=== PATIENT | female | born 1990 | race Caucasian/White ===

== ENCOUNTER → 2017-07-16 16:25 | Outpatient (CLI) | payer OTHER, SELFPAY ==
[2017-07-20 11:59] LABS: HPV Reflexed? NOT INDICATED
== END ==
PROVIDERS: Visit Provider Obstetrics & Gynecology
DX: Z12.4 Encounter for screening for malignant neoplasm of cervix (principal)
CPT/HCPCS: 88175; G0145

== ENCOUNTER → 2018-07-12 16:19 | Outpatient (CLI) | payer OTHER, SELFPAY ==
[2018-06-17 15:47] VITALS: BMI 26.2
[2018-07-12 21:20] LABS: Chlamydia Trachomatis by PCR Negative (Negative); Neisserai gonorrhoeae by PCR Negative (Negative); Probe Check PASS; Sample Adequacy Control PASS; Specimen Processing Control PASS
[2018-07-17 12:57] LABS: HPV Reflexed? NOT INDICATED
== END ==
PROVIDERS: Visit Provider Obstetrics & Gynecology
DX: Z12.4 Encounter for screening for malignant neoplasm of cervix (principal); Z11.3 Encounter for screening for infections with a predominantly sexual mode of transmission
CPT/HCPCS: 87491; 87591; 88175; G0145

== ENCOUNTER 2018-07-29 09:35 | Day surgery (SDC) | payer OTHER, SELFPAY ==
[2018-06-17 15:47] VITALS: BMI 26.2
--- NOTE | 2018-07-29 09:36 | PCM.HP.STD ---
History of Present Illness Date of Admission: 07/29/18 07/29/2018 Name: BRITANY ALEMAN HISTORY OF PRESENT ILLNESS: On 07/29/2018, Britany Aleman, a 28 year old female 0 0 0 0 0, presented for: Presents today for repeat pelvic ultrasound She was in last week for NOB sono and at that time found to have a 6wk nonviable IUP with an irregular 11w1d gestational sac. No cardiac mothion noted. Sono today confirms the same findings. No interval growth noted. MISSED SAB. She has a suction D and C scheduled for today. Is NPO this morning for the planned surgery. Reviewed R,B,A and discussed anticipated preop, surgery and recovery. States she is not having any carmping or bleeding. EB ALLERGIES: NKDA MEDICATIONS HISTORY: None. REVIEW OF SYSTEMS: GENERAL - Denies fever, or chills SKIN - Denies skin changes EYES - Denies visual changes EARS - Denies difficulty hearing NOSE - Denies nasal congestion or bleeding MOUTH - Denies sore throat or difficulty swallowing NECK - Denies pain or swelling RESPIRATORY - Denies shortness of breath or wheezing CARDIOVASCULAR - Denies palpitations or chest pain GASTROINTESTINAL - Denies nausea, vomiting, diarrhea, constipation GENITOURINARY - no bleeding MUSCULOSKELETAL - Denies joint or muscle pain NEUROLOGICAL - Denies localized numbness or weakness PSYCHIATRIC - Denies depression or anxiety ENDOCRINE - Denies heat or cold intolerance, weight loss or gain HEMATO-IMMUNOLOGIC - Denies excesive bleeding with cuts MENSTRUAL HISTORY: LMP Known?- DefiniteAmount/Duration - 4 days, Regularity - Irregular, LMP - 02/08/19, Age Onset Menarche - 17 PHYSICAL EXAMINATION BP- 110/78 Weight- 163.00 lbs CONSTITUTIONAL - NAD, well nourished, and well developed HEENT - Normocephalic, PERRLA, EOMI NECK - no nuchal rigidity EXTREMITIES - No edema or calf tenderness NEUROLOGICAL - Cranial nerves II-XII grossly intact PSYCHIATRIC - A and O to time, place, person, mood and affect PELVIC - SONO: nonviable IUP at 6 wk EGA. Sac measuring 11 wk. ASSESSMENT: 1. Missed PLAN BY DIAGNOSIS: 1. Missed Reviewed sono findings. No change since last sono. Advised missed AB. Not having symptoms. No bleeding or spotting, cramping. Reviewed background SAB risk and discussed options for management. Reviewed all options at prior visit. She plans to proceed with suction D and C. This is scheduled for today. RTO in 2 wk for postop follow up appt. Advised may consider resumption of contraception or continue on PNV and resume intercourse when comfortable. All questions answered and consents signed and on chart. Past Medical History Medical History: Medical History (Last Updated 06/17/18 @ 15:48 by Nichelle Osorio) History of wisdom tooth extraction K08.409 Allergies No Known Allergies Allergy (Unverified 07/26/18 13:37) Home Medications: Ambulatory Orders Medication Instructions Recorded guaifenesin ER 1,200 mg tablet, 1,200 mg PO Q12H PRN 06/17/18 extended release 12 hr Acetaminophen/Codeine #3 1 tablet PO Q6H PRN PRN 1 Days #4 07/29/18 [Tylenol#3] tablet Smoking Status: Never smoker Tobacco Use: Non-smoker VTE Information - Inpt Only VTE Present on Admission: No VTE Mechan Device Prophylaxis: SCD's - Physical Exam Body Mass Index (BMI) 26.2 Assessment/Plan All Active Problems (Last Updated 06/17/18 @ 15:48 by Nichelle Osorio) Impacted cerumen, right ear (Acute)
[2018-07-29 10:04] VITALS: BP 115/79; PULSE 81; RESP 16; TEMP 36.9; O2SAT 100; BMI 26.3
--- NOTE | 2018-07-29 12:00 | POC_PTH ---
PATIENT: KARY JOINER LOC: [facility] [place][id number] AGE/SX: 28/F ROOM: RE07/29/[address]: Dr. Carla Marsh MD : [id number] BED: DIS: 07/29/2018 SPEC #: [id number] RECD: 07/29/18 13:46 STATUS: SHALONDA BRYANNA #: [id number] TOMY: 07/29/18 12:[address]: Carla Marsh DEPT: SURGICAL PATHOLOGY RECD BY: Nicol Medina ENTERED: 07/29/18 14:08 SP TYPE: PROD CONC OTHR DR: No Primary Care Phys Tissues: Product of conception, NOS Procedures: Surgery Specimen Level IV HEADER OPERATION: Dilation and curettage, suction PRE-OP DIAGNOSIS: Missed TISSUE SUBMITTED: Products of conception MICROSCOPIC DIAGNOSIS Endometrium, curettage: Chorionic villi, decidualized stroma and trophoblastic cells consistent with products of conception. AM:portia 07/30/18 MICROSCOPIC DESCRIPTION Slides are reviewed. GROSS DESCRIPTION Received in fixative is one container labeled with the patient's name and designated products of conception. The specimen consists of multiple irregular fragments of red-rachel soft tissue that in aggregate measure 8.5 x 8 x 1 cm. parts are not grossly recognized. Kier Hand portions are submitted in one cassette. / AM:portia 07/29/18 TC:5 CPT: 12236
--- NOTE | 2018-07-29 12:24 | PCM.DC.D&C ---
Discharge Diet: No Restrictions Discharge Activity: May not drive while taking narcotic pain medications., May Shower, May Take a Tub Bath Return to work on:: 07/30/18 May resume sexual activity in: 1 week Call your doctor if you observe: Fever of 101 or Higher, Inability to have a bowel movement, Using more than one pad per hour, Uncontrolled pain Allergies/Adverse Reactions: Allergies No Known Allergies Allergy (Unverified 07/29/18 10:02) Medications to take at Discharge guaifenesin ER 1,200 mg tablet, extended release 12 hr 1,200 mg PO Q12H PRN 06/17/18 Acetaminophen/Codeine #3 [Tylenol#3] 1 tablet PO Q6H PRN PRN 1 Days #4 tablet 07/29/18 The following prescriptions were given: Acetaminophen/Codeine #3 [Tylenol#3] 1 tablet PO Q6H PRN PRN 1 Days #4 tablet PRN Reason: Mod-Severe Pain (4-10/10) Primary Care Physician: Care Physician,No Primary [Primary Care Provider] - Test Results: Test results from this visit will be discussed in further detail at your follow-up appointment, if applicable. Please Follow Up With: Carla Marsh MD - [phone] When: 2 wks for postop appt Proposed Discharge Date: 07/29/18
--- NOTE | 2018-07-29 12:28 | DCINST_ITS ---
Discharge Diet: No Restrictions Discharge Activity: May not drive while taking narcotic pain medications., May Shower, May Take a Tub Bath Return to work on:: 07/30/18 May resume sexual activity in: 1 week Call your doctor if you observe: Fever of 101 or Higher, Inability to have a bowel movement, Using more than one pad per hour, Uncontrolled pain Allergies/Adverse Reactions: Allergies No Known Allergies Allergy (Unverified 07/29/18 10:02) Medications to take at Discharge guaifenesin ER 1,200 mg tablet, extended release 12 hr 1,200 mg PO Q12H PRN 06/17/18 Acetaminophen/Codeine #3 [Tylenol#3] 1 tablet PO Q6H PRN PRN 1 Days #4 tablet 07/29/18 The following prescriptions were given: Acetaminophen/Codeine #3 [Tylenol#3] 1 tablet PO Q6H PRN PRN 1 Days #4 tablet PRN Reason: Mod-Severe Pain (4-10/10) Primary Care Physician: Care Physician,No Primary [Primary Care Provider] - Test Results: Test results from this visit will be discussed in further detail at your follow- up appointment, if applicable. Please Follow Up With: Carla Marsh MD - [phone] When: 2 wks for postop appt Proposed Discharge Date: 07/29/18
[2018-07-29 12:54] VITALS: BP 108/64; BP 115/79; PULSE 81; RESP 18; TEMP 36.6; O2SAT 98
[2018-07-29 12:55] VITALS: BP 111/69; BP 115/79; PULSE 77; RESP 18; O2SAT 97
[2018-07-29 13:00] VITALS: BP 109/69; BP 115/79; PULSE 74; RESP 18; O2SAT 98
[2018-07-29 13:11] VITALS: BP 113/69; BP 115/79; PULSE 70; RESP 18; TEMP 36.8; O2SAT 100
--- NOTE | 2018-07-29 13:15 | PCM.OPRPT ---
Report of Operation Date of Procedure: 07/29/18 Pre-Operative Diagnosis: Missed , 6 wk EGA Post-Operative Diagnosis: Same Surgery/Procedure Performed:: Suction D and C Description of Surgical Findings:: Uterus sounds to 11.5 cm No cervical lesions noted. Products of conception consistent with products of conception noted and withdrawn. Type of Anesthesia:: IV Sedation, Local MAC Anesthesiologist: Yfn Sanderson Specimen's removed: uterine curettings, POC Drains: Kiko Villanueva Estimated Blood Loss (mL): 20 Fluids Replaced: LR Description of Procedure: Narrative Account: After the risks, benefits, alteratives of the procedure were reviewed with the patient informed consent was obtained. The patient was taken to the OR with IV running and placed in dorsal supine position on the operating table. She was given general anesthesia, per laryngeal airway, and then repositioned to the dorsal lithotomy position and was prepped and draped in the usual sterile fashion. The bladder was drained with a red rubber catheter. A Graves speculum was placed, the cervix identified and the anterior lip grasped with a single toothed tenaculum. The cervix was then easily dilated to allow admission of an 8 mm curved suction curette tip. The suction curette was then placed to the uterine fundus, suction applied, and POC were obtained. After most of the products of conception were removed a sharp curettage was performed and good Crei was noted in all quadrants of the uterus. One final pass was conducted with the suction curette and the remaining products of conception and uterine curettings were removed. A sponge stick was then used to remove any remaining tissue and blood from the upper vagina and cervix . All instruments were then removed from the vagina and cervix. Excellent hemostasis was noted. The patient was awakened from general anesthesia and then transferred to her recovery room bed in stable condition after tolerating the procedure well. Sponge , instrument, and needle counts were correct x two. Medications given intraoperatively included: Toradol 30 mg IV x one. For a complete listing of medications given intraoperatively, please see the anesthesia record. - Admit VTE Documentation VTE Present on Admission: No VTE Mechan Device Prophylaxis: SCD's
[2018-07-29 14:17] VITALS: BP 115/79
== END 2018-07-29 14:20 | disposition home or self-care (01) ==
LOC: SDC 09:36 → AC 09:38
PROVIDERS: Referring Provider Obstetrics & Gynecology; Visit Provider Obstetrics & Gynecology
PROC: (CPT 59812; principal; 2018-07-29 11:45)
DX: O03.4 Incomplete spontaneous abortion without complication (principal)
CPT/HCPCS: 59812; 36415; 86850; 86900; 88305; J7120

== ENCOUNTER → 2019-12-26 18:02 | Outpatient (CLI) | payer OTHER, SELFPAY | PROVIDERS: Referring Provider Obstetrics & Gynecology; Visit Provider Obstetrics & Gynecology | DX: Z20.828 Contact with and (suspected) exposure to other viral communicable diseases (principal) | CPT/HCPCS: 87635; 94799; U0003 ==

== ENCOUNTER 2019-12-27 19:51 | Inpatient (IN) | payer OTHER, SELFPAY ==
[2019-12-27] VITALS (26 sets, daily range): BP systolic 111–145; BP diastolic 53–98; PULSE 80–116; TEMP 35.6–36.6; O2SAT 93–100; BMI 35.4
--- NOTE | 2019-12-27 12:08 | OB.TRI.NOTE ---
History of Present Illness Was patient seen by the physician?: Yes Reason For Visit: R/O LABOR Date of Service: 12/27/19 Final EDITH: 12/26/19 Gestational age: 40 Weeks and 1 Days Allergies No Known Allergies Allergy (Unverified 07/29/18 10:02) - Pertinent Past Medical History Surgical History: Past Surgical History (Last Reviewed 06/17/18 @ 15:48 by Nichelle Osorio) History of wisdom tooth extraction Physical Exam Vitals: Vital Signs Temp Pulse BP Pulse Ox 97.9 F 99 114/66 98 12/27/19 09:50 12/27/19 10:09 12/27/19 10:09 12/27/19 09:41 NST - FHR Rate Baby A Baseline: 135 Variability:: Moderate Accelerations:: 15 x 15 Decelerations:: Variable - rare NST Reactive:: Yes Uterine Activity:: Irregular Impression/Plan NST for false labor
[2019-12-27] MEDS: Lactated Ringers 1,000 ML 50 ML IV (20:20)
[2019-12-27] MEDS: Lactated Ringers 500 ML 999 ML IV (20:22)
[2019-12-27] MEDS: Ondansetron 4 MG/2 ML Vial IV (20:33)
[2019-12-27 20:39] LABS: Absolute Lymphocyte Count 1.93 X10^3/uL (0.83-4.51); Absolute Neutrophil Count 17.3 X10^3/uL (2.0-7.7); Basophil# 0.03 X10^3/uL; Basophil% 0.1 % (0-1); Eosinophil# 0.04 X10^3/uL; Eosinophils% 0.2 % (0-5); Hematocrit 31.7 % (37-47); Hemoglobin 10.7 g/dL (12.0-15.0); Lymphocyte # 1.93 X10^3/ul (4.0); Lymphocyte % 9.5 % (19-41); Mean Corp Hgb Conc 33.8 g/dL (32-36); Mean Corpuscular Hgb 30.2 pg (27.0-32.0); Mean Corpuscular Volume 89.5 fL (81-99); Mean Platelet Vol. 11.3 fl (6.2-12.0); Monocyte% 4.4 % (0-10); NRBC Flagged by Analyzer 0 % (0-5); Neutrophil # 17.29 X10^3/uL (2.7-7.7); Platelet Count 180 K/mm3 (150-450); RBC Distribution Width CV 13.6 % (11.6-14.6); RBC Distribution Width SD 45.1 fl (35.1-43.9); Red Blood Count 3.54 M/mm3 (4.2-5.4); White Blood Count 20.4 K/mm3 (4.4-11.0)
[2019-12-27] MEDS: fentaNYL-bupivacaine (epidural) 100 ML BAG EPIDURAL (21:20)
--- NOTE | 2019-12-27 23:44 | HP.PCM_ITS ---
History Date of Admission: 12/27/19 Final EDITH: 12/26/19 Gestational age: 40 Weeks and 1 Days History of this : Patient presents with ctxs. Surgical History: Surgical History (Last Reviewed 06/17/18 @ 15:48 by Nichelle Osorio) History of wisdom tooth extraction K08.409 Allergies No Known Allergies Allergy (Unverified 07/29/18 10:02) Home Medications: Home Medications Ferrous Gluconate 324 mg PO DAILY 12/27/19 Pnv No.95/Ferrous Fum/Folic AC [ Formula] 1 ea PO DAILY 12/27/19 Smoking Status: Never smoker Alcohol: None Number of Fetus(es): 1 NST - FHR Rate Baby A Baseline: 130 Variability:: Moderate Accelerations:: 15 x 15 Uterine Activity:: not tracing well History Past Pregnancies: Past Pregnancies Delivery Date Name GA/ Weeks Outcome Route Wt Infant Sex Labor Length Anesthesia Delivery Location Provider FOB Labs: See [facility] H[facility]P Physical Exam Vitals: Vital Signs Temp Pulse BP Pulse Ox 97.8 F 80 111/53 L 100 12/27/19 23:41 12/27/19 23:37 12/27/19 23:37 12/27/19 23:37 General: Alert, Oriented x3 Abdomen: Soft, Non Tender, Non-Distended, Gravid GLASS CUT OFF SUPERVISOR: Normal external genitalia Estimated gestational size: Appropriate for gestational size Presentation: Cephalic Cervix Dilation (cm): 9 - AROM clear fluid Station: -2 Effacement (%): 80 Assessment/Plan All Active Problems (Last Updated 06/17/18 @ 15:48 by Nichelle Osorio) Impacted cerumen, right ear (Acute) This is a 29 year-old, G2, P0010, at 40&1 weeks gestational age. Admit to L&D Expectant management COVID test pending GBS positive - pcn per protocol Pain - epidural EFW - less than 4500g, patient with adequate pelvis Routine care
[2019-12-28] VITALS (30 sets, daily range): BP systolic 98–141; BP diastolic 44–77; PULSE 75–105; RESP 12–21; TEMP 35.4–37.2; O2SAT 97–100
[2019-12-28] MEDS: Oxytocin 30 units/NS 500 ml 30 UNITS/500 ML IV.SOLN IV (00:18)
[2019-12-28] MEDS: fentaNYL-bupivacaine (epidural) 100 ML BAG EPIDURAL (01:46)
[2019-12-28] MEDS: Lactated Ringers 1,000 ML 200 ML IV (01:47)
[2019-12-28] MEDS: Mag Hydrox/Al Hydrox/Simeth 30 ML UDC PO (04:29)
[2019-12-28] MEDS: Lactated Ringers 500 ML 999 ML IV (04:33)
[2019-12-28] MEDS: 0.9% Saline Lock 10 ML Syringe IV ×2 (04:57→17:49)
[2019-12-28] MEDS: Ondansetron 4 MG/2 ML Vial IV (04:57)
--- NOTE | 2019-12-28 05:15 | PCM.OPRPT ---
Report of Operation Date of Procedure: 12/28/19 Surgery/Procedure Performed:: Primary low transverse section Description of Surgical Findings:: Normal maternal uterus and adnexa diesel retrofit designer: Vani Mueller Delivery Classification: ABHINAV Final EDITH: 12/26/19 Gestational age: 40 Weeks and 2 Days Type of Anesthesia:: Epidural Pre-Operative Diagnosis: Failure to dilate Post-Operative Diagnosis: Failure to dilate Indications: Patient presented in labor at 8cm. She progressed to 9cm and AROM performed. Pitocin was started. 6 hours after AROM patient remained 9cm. Decision was made to proceed with primary cesearan section. Indications for : Sec. Arrest of Dilitation Description of Procedure: Patient taken to OR where spinal anesthesia was dosed. She was prepped and draped in the normal sterile fashion in a dorsal supine position with a leftward tilt. After ensuring adequacy of anesthesia the Pfannensteil skin incision was made and carried through to the underlying fascia with a scalpel. The fascia was incised in the midline and carried laterally with the Sandoval scissors. The rectus muscles were in the midline and the peritoneum was entered bluntly. The bladder flap was dissected down carefully with the Metzenbaum scissors and blunt dissection. The uterus was incised in a transverse fashion and then incision extended with cephalocaudad traction. The fetus was vertex and the head was elevated to the uterine incision. With fundal pressure the head delivered. head was gently guided to allow delivery of anterior and posterior shoulders. No excess traction placed on head. Body delivered and 3VC clamped & cut in delayed fashion. Then the was handed off to the waiting RN. The placenta was delivered with gentle traction and fundal massage and the uterus was exteriorized and cleared of all clots and debris. The uterine incision was closed with 1 vicryl suture in a running locked fashion. The bovie was used to further obtain further hemostasis of the uterine incision. A second imbricating layer of monocryl was placed. The uterus was returned to the peritoneal cavity. The pelvis was irrigated & then cleared of all clots and debris. The uterine incision was reexamined and found to be hemostatic. Some kimani was placed over the uterine incision due to the denuded areas. The fascia was closed with looped PDS suture in a running standard fashion. The subcutaneous tissue was examined & any bleeding bovie cauterized. The subcutaneous tissue was reapproximated with plain gut suture. The skin was closed in a subcuticular fashion by the MULTI PURPOSE MACHINE OPERATOR with me present in the labor and delivery suite. I performed the remainder of the procedure w/ assistance. Amniotic Membrane Rupture Type: Artificial Amniotic Fluid Description: Clear Placenta Disposition: [facility] Drain: Rodriguez to straight drain Fluids Replaced: 1500ml Cord Entanglement: None Cord Vessel Description: 3 Vessels Esitmated Blood Loss (ml): 900ml Infant Gender: Female - Brennen (1 minute): 9 (5 minute): 9 Delayed cord clamping: Yes Antibiotic Given: Ancef 2 grams IV x1, Zithromax 500 mg/5 mL X1 - Admit VTE Documentation VTE Present on Admission: No
[2019-12-28] MEDS: Sodium Citrate/Citric Acid 30 ML UDC PO (05:22)
[2019-12-28] MEDS: Cefazolin 2 GM in 0.9% Normal Saline 100 ML IV (05:25)
[2019-12-28] MEDS: Oxytocin 30 units/NS 500 ml 30 UNITS/500 ML IV.SOLN 167 UNITS IV (07:00)
--- NOTE | 2019-12-28 07:54 | NURSING ---
0511- dr hong on unit, do not give tylenol as per new ERA orders d/t pt being nauseous/emesis
[2019-12-28] MEDS: Lactated Ringers 1,000 ML 100 ML IV (10:00)
[2019-12-28] MEDS: Senna/Docusate Sodium 1 Tablet PO (12:08)
[2019-12-28] MEDS: Acetaminophen 500 MG Tablet 1000 MG PO ×2 (12:09→17:48)
[2019-12-28] MEDS: Ketorolac 30 MG/ML Syringe IV ×2 (12:09→17:48)
[2019-12-28] MEDS: Enoxaparin 40 MG/0.4 ML Syringe SC (18:40)
[2019-12-29] MEDS: Ketorolac 30 MG/ML Syringe IV ×2 (00:03→05:46)
[2019-12-29] MEDS: 0.9% Saline Lock 10 ML Syringe IV ×2 (00:03→05:46)
[2019-12-29] MEDS: Acetaminophen 500 MG Tablet 1000 MG PO ×4 (00:03→18:23)
[2019-12-29 00:13] VITALS: BP 116/65; PULSE 95; RESP 18; TEMP 36.2; O2SAT 99
[2019-12-29 03:15] VITALS: BP 113/53; PULSE 97; RESP 14; TEMP 36.3
[2019-12-29 06:22] LABS: Hematocrit 21.8 % (37-47); Hemoglobin 7.2 g/dL (12.0-15.0); Mean Corpuscular Hgb 30.3 pg (27.0-32.0); Mean Corpuscular Volume 91.6 fL (81-99); Mean Platelet Vol. 11.5 fl (6.2-12.0); Platelet Count 133 K/mm3 (150-450); Red Blood Count 2.38 M/mm3 (4.2-5.4); White Blood Count 13.6 K/mm3 (4.4-11.0)
--- NOTE | 2019-12-29 08:11 | PCM.PN.OB ---
Subjective: Pt doing well. No CP, SOB, lightheadedness, dizziness, leg pain. Ambulating and voiding without difficulty. Tolerating reg diet without N/V. without complaints. Lochia normal. - Physical Exam Vitals/I&O's: Vital Signs Temp Pulse Resp BP Pulse Ox 97.3 F L 97 14 113/53 L 99 12/29/19 03:15 12/29/19 03:15 12/29/19 03:15 12/29/19 03:15 12/29/19 00:13 Oxygen Delivery Method Room Air Weight: 219 lb 2.232 oz Body Mass Index (BMI) 35.4 Intake and Output for Last 24 Hours 12/27/19 12/28/19 12/29/19 23:59 23:59 23:59 Intake Total 606.67 / 606.67 6280.04 / 6280.04 Output Total 375 / 375 1960 / 1960 700 / 700 Balance 231.67 / 231.67 4320.04 / 4320.04 -700 / -700 General: Alert, No apparent distress HEENT: Atraumatic Abdomen: Soft, - - ATTP, +soft distension, no rebounding, no gaurding, no rigidity Extremities: No edema, No Calf Tenderness Skin: No rashes Neurological: Neuro grossly intact Psych/Mental Status: Normal Affect, Appropriate Laboratory Results 12/29/19 05:40: WBC 13.6 H, RBC 2.38 L, Hgb 7.2 L, Hct 21.8 L, MCV 91.6, MCH 30.3, MCHC 33.0, RDW Std Deviation 47.0 H, RDW Coeff of Iván 14.0, Plt Count 133 L, MPV 11.5 Current Medications Acetaminophen (Tylenol) 1,000 mg PO Q6 [facility] Last Admin: 12/29/19 05:46 Dose: 1,000 mg Documented by: Bisacodyl (Dulcolax) 10 mg RECTAL UD PRN PRN Reason: If no BM Enoxaparin Sodium (Lovenox) 40 mg SC DAILY@1900 [facility] Last Admin: 12/28/19 18:40 Dose: 40 mg Documented by: Hydrocortisone (Hytone) 1 applic TOPICAL TID PRN PRN; Protocol PRN Reason: Discomfort Naloxone HCl 4 mg/ Dextrose 504 mls @ 0 mls/hr IV .Q0M PRN; Protocol PRN Reason: Respiratory depression Naloxone HCl 4 mg/ Dextrose 504 mls @ 0 mls/hr IV .Q0M PRN; Protocol PRN Reason: To maintain Resp. rate >10 Ibuprofen (Motrin) 600 mg PO Q6 [facility] Methylergonovine Maleate (Methergine) 0.2 mg IM X1 PRN PRN Reason: Uterine Atony Naloxone HCl (Narcan) 0.02 mg IV Q1M PRN PRN Reason: RR <10 and pt unresponsive Ondansetron HCl (Zofran) 4 mg IV Q4H PRN PRN PRN Reason: Nausea Oxycodone HCl (Oxyir) 5 - 10 mg PO Q4H PRN PRN PRN Reason: Pain Score 4-10/10 Prochlorperazine Edisylate (Compazine Iv) 10 mg IV Q6H PRN PRN PRN Reason: NAUSEA Senna/Docusate Sodium (Senokot-S, Lisa-Colace) 0 tablet PO DAILY [facility] Last Admin: 12/28/19 12:08 Dose: 1 tablet Documented by: Simethicone (Mylicon) 80 mg PO PCHS PRN PRN Reason: Indigestion/stomach pain Sodium Chloride () 5 - 15 ml IV UD PRN PRN Reason: SALINE FLUSH Last Admin: 12/29/19 05:46 Dose: 10 ml Documented by: Medical Necessity - Tobacco Use Smoking Status: Never smoker Assessment/Plan All Active Problems (Last Updated 06/17/18 @ 15:48 by Nichelle Osorio) Impacted cerumen, right ear (Acute) POD#1 s/p C/S - Doing well - HDS and without symptoms of anemia. Hgb 7.2. Discussed likely need for blood transfusion and r/b/a to blood transfusion. Discussed to let us know if she has any symptoms of anemia today. Otherwise will check CBC in AM - - Routine post op care
[2019-12-29 09:00] VITALS: BP 106/44; PULSE 87; RESP 16; TEMP 36.4
[2019-12-29] MEDS: Senna/Docusate Sodium 1 Tablet PO (10:06)
[2019-12-29] MEDS: Ibuprofen 600 MG Tablet PO ×3 (12:21→17:52)
[2019-12-29 14:30] VITALS: BP 115/52; PULSE 91; RESP 16; TEMP 36.4
[2019-12-29] MEDS: Enoxaparin 40 MG/0.4 ML Syringe SC (17:53)
[2019-12-29 20:44] VITALS: BP 117/50; PULSE 93; RESP 14; TEMP 36.7; O2SAT 97
[2019-12-30] MEDS: Acetaminophen 500 MG Tablet 1000 MG PO ×2 (00:06→06:06)
[2019-12-30] MEDS: Ibuprofen 600 MG Tablet PO ×3 (00:08→11:49)
[2019-12-30 01:11] VITALS: BP 116/66; PULSE 75; RESP 16; TEMP 36.4
[2019-12-30 05:11] LABS: Hematocrit 23.9 % (37-47); Hemoglobin 7.9 g/dL (12.0-15.0); Mean Corp Hgb Conc 33.1 g/dL (32-36); Mean Corpuscular Hgb 30.3 pg (27.0-32.0); Mean Corpuscular Volume 91.6 fL (81-99); Mean Platelet Vol. 10.5 fl (6.2-12.0); Platelet Count 153 K/mm3 (150-450); RBC Distribution Width CV 13.8 % (11.6-14.6); Red Blood Count 2.61 M/mm3 (4.2-5.4); White Blood Count 12.7 K/mm3 (4.4-11.0)
[2019-12-30 08:15] VITALS: BP 102/62; PULSE 77; RESP 16; TEMP 36.4; O2SAT 96
--- NOTE | 2019-12-30 08:23 | PCM.PN.OB ---
Subjective: Patient seen at bedside. infant. No SOB, CP or leg pain. Incision pain is controlled. Lochia decreased. Ambulating and passing flatus. Appetite increasing. Desires discharge home today. - Physical Exam Vitals/I&O's: Vital Signs Temp Pulse Resp BP Pulse Ox 97.5 F L 75 16 116/66 97 12/30/19 01:11 12/30/19 01:11 12/30/19 01:11 12/30/19 01:11 12/29/19 20:44 Oxygen Delivery Method Room Air Weight: 219 lb 2.232 oz Body Mass Index (BMI) 35.4 Intake and Output for Last 24 Hours 12/28/19 12/29/19 12/30/19 23:59 23:59 23:59 Intake Total 6280.04 / 6280.04 Output Total 1959 / 1959 700 / 700 Balance 4320.04 / 4320.04 -700 / -700 General: Alert, Oriented x3, Cooperative Lungs: Normal air movement Cardiovascular: Regular rate Abdomen: Soft, Non Tender, Passing Flatus Extremities: Capillary Refill Less than 3 Seconds Skin: No rashes, No breakdown Neurological: Cranial nerves II-XII grossly intact Psych/Mental Status: Normal Affect Laboratory Results 12/30/19 05:05: WBC 12.7 H, RBC 2.61 L, Hgb 7.9 L, Hct 23.9 L, MCV 91.6, MCH 30.3, MCHC 33.1, RDW Std Deviation 46.0 H, RDW Coeff of Iván 13.8, Plt Count 153, MPV 10.5 Current Medications Acetaminophen (Tylenol) 1,000 mg PO Q6 [facility] Last Admin: 12/30/19 06:06 Dose: 1,000 mg Documented by: Bisacodyl (Dulcolax) 10 mg RECTAL UD PRN PRN Reason: If no BM Enoxaparin Sodium (Lovenox) 40 mg SC DAILY@1900 [facility] Last Admin: 12/29/19 17:53 Dose: 40 mg Documented by: Hydrocortisone (Hytone) 1 applic TOPICAL TID PRN PRN; Protocol PRN Reason: Discomfort Naloxone HCl 4 mg/ Dextrose 504 mls @ 0 mls/hr IV .Q0M PRN; Protocol PRN Reason: Respiratory depression Naloxone HCl 4 mg/ Dextrose 504 mls @ 0 mls/hr IV .Q0M PRN; Protocol PRN Reason: To maintain Resp. rate >10 Ibuprofen (Motrin) 600 mg PO Q6 [facility] Last Admin: 12/30/19 06:07 Dose: 600 mg Documented by: Methylergonovine Maleate (Methergine) 0.2 mg IM X1 PRN PRN Reason: Uterine Atony Naloxone HCl (Narcan) 0.02 mg IV Q1M PRN PRN Reason: RR <10 and pt unresponsive Ondansetron HCl (Zofran) 4 mg IV Q4H PRN PRN PRN Reason: Nausea Oxycodone HCl (Oxyir) 5 - 10 mg PO Q4H PRN PRN PRN Reason: Pain Score 4-10/10 Prochlorperazine Edisylate (Compazine Iv) 10 mg IV Q6H PRN PRN PRN Reason: NAUSEA Senna/Docusate Sodium (Senokot-S, Lisa-Colace) 0 tablet PO DAILY [facility] Last Admin: 12/29/19 10:06 Dose: 1 tablet Documented by: Simethicone (Mylicon) 80 mg PO PCHS PRN PRN Reason: Indigestion/stomach pain Sodium Chloride () 5 - 15 ml IV UD PRN PRN Reason: SALINE FLUSH Last Admin: 12/29/19 05:46 Dose: 10 ml Documented by: Medical Necessity - Tobacco Use Smoking Status: Never smoker Assessment/Plan All Active Problems (Last Updated 06/17/18 @ 15:48 by Nichelle Osorio) Impacted cerumen, right ear (Acute) A/P POD #2 Primary C/S Routine care Pain control Discharge home today
--- NOTE | 2019-12-30 08:29 | DCINST_ITS ---
Discharge Diet: No Restrictions Discharge Activity: May Drive - 2 weeks May resume sexual activity in: 6-8 weeks Weight Bearing Status: Weight bearing as tolerated Lifting Restrictions: 25 lbs Suture Line Care: Avoid Pulling/Pushing Additional Instructions: If you experience any of the following, contact your healthcare provider. * Bleeding that soaks a pad every hour for 2 hours * Fever 100.4 or higher * Unrelieved incision or abdominal pain * Swelling, redness, discharge or bleeding from your incision or episiotomy site * Your incision begins to separate * Problems urinating (including inability to urinate or burning while urinating). * Visual changes * Severe headache * Flu-like symptoms * Pain or redness in one of both of your breasts * Pain, warmth, tenderness or swelling in your legs, especially the calf area * Frequent nausea and vomiting * Symptoms of depression or anxiety If you experience any of the following, call 911 or go to the nearest Emergency Room. * Chest pain * Problems breathing * Seizure activity * Partial or complete paralysis of a body part, slurred speech, weakness or drooping of the face, or a sudden inability to walk or hold your balance Allergies/Adverse Reactions: Allergies No Known Allergies Allergy (Unverified 07/29/18 10:02) Medications to take at Discharge Ferrous Gluconate 324 mg PO DAILY 12/27/19 Pnv No.95/Ferrous Fum/Folic AC [ Formula Tablet] 1 ea PO DAILY 12/27/19 Follow-Up: Call to make an appointment with your doctor for an incision check in 1-2 weeks. You will also need a 6 week post- follow up appointment. Test results from this visit will be discussed in further detail at your follow- up appointment, if applicable. Primary Care Physician: Care Physician,No Primary [Primary Care Provider] -
--- NOTE | 2019-12-30 08:29 | PCM.DCCSEC ---
Discharge Diet: No Restrictions Discharge Activity: May Drive - 2 weeks May resume sexual activity in: 6-8 weeks Weight Bearing Status: Weight bearing as tolerated Lifting Restrictions: 25 lbs Suture Line Care: Avoid Pulling/Pushing Additional Instructions: If you experience any of the following, contact your healthcare provider. Bleeding that soaks a pad every hour for 2 hours Fever 100.4 or higher Unrelieved incision or abdominal pain Swelling, redness, discharge or bleeding from your incision or episiotomy site Your incision begins to separate Problems urinating (including inability to urinate or burning while urinating). Visual changes Severe headache Flu-like symptoms Pain or redness in one of both of your breasts Pain, warmth, tenderness or swelling in your legs, especially the calf area Frequent nausea and vomiting Symptoms of depression or anxiety If you experience any of the following, call 911 or go to the nearest Emergency Room. Chest pain Problems breathing Seizure activity Partial or complete paralysis of a body part, slurred speech, weakness or drooping of the face, or a sudden inability to walk or hold your balance Allergies/Adverse Reactions: Allergies No Known Allergies Allergy (Unverified 07/29/18 10:02) Medications to take at Discharge Ferrous Gluconate 324 mg PO DAILY 12/27/19 Pnv No.95/Ferrous Fum/Folic AC [ Formula Tablet] 1 ea PO DAILY 12/27/19 Follow-Up: Call to make an appointment with your doctor for an incision check in 1-2 weeks. You will also need a 6 week post- follow up appointment. Test results from this visit will be discussed in further detail at your follow-up appointment, if applicable. Primary Care Physician: Care Physician,No Primary [Primary Care Provider] -
--- NOTE | 2019-12-30 08:30 | PCM.DC.SUM ---
Discharge Date and Diagnosis Date of Admission: 12/27/19 Date of Discharge: 12/30/19 Hospital Course and Treatment Summary of Care Provided: The patient is a 29 year old F with primary c/s for failure to progress on 12/28/2019. Course uncomplicated. Discharge home on 12/30/2019. - Physical Exam Vitals/I&O's: Vital Signs Temp Pulse Resp BP Pulse Ox 97.5 F L 75 16 116/66 97 12/30/19 01:11 12/30/19 01:11 12/30/19 01:11 12/30/19 01:11 12/29/19 20:44 Oxygen Delivery Method Room Air Weight: 219 lb 2.232 oz Body Mass Index (BMI) 35.4 Intake and Output for Last 24 Hours 12/28/19 12/29/19 12/30/19 23:59 23:59 23:59 Intake Total 6280.04 / 6280.04 Output Total 1960 / 1960 700 / 700 Balance 4320.04 / 4320.04 -700 / -700 Laboratory Results 12/30/19 05:05: WBC 12.7 H, RBC 2.61 L, Hgb 7.9 L, Hct 23.9 L, MCV 91.6, MCH 30.3, MCHC 33.1, RDW Std Deviation 46.0 H, RDW Coeff of Iván 13.8, Plt Count 153, MPV 10.5 Current Medications Acetaminophen (Tylenol) 1,000 mg PO Q6 [facility] Last Admin: 12/30/19 06:06 Dose: 1,000 mg Documented by: Bisacodyl (Dulcolax) 10 mg RECTAL UD PRN PRN Reason: If no BM Enoxaparin Sodium (Lovenox) 40 mg SC DAILY@1900 [facility] Last Admin: 12/29/19 17:53 Dose: 40 mg Documented by: Hydrocortisone (Hytone) 1 applic TOPICAL TID PRN PRN; Protocol PRN Reason: Discomfort Naloxone HCl 4 mg/ Dextrose 504 mls @ 0 mls/hr IV .Q0M PRN; Protocol PRN Reason: Respiratory depression Naloxone HCl 4 mg/ Dextrose 504 mls @ 0 mls/hr IV .Q0M PRN; Protocol PRN Reason: To maintain Resp. rate >10 Ibuprofen (Motrin) 600 mg PO Q6 [facility] Last Admin: 12/30/19 06:07 Dose: 600 mg Documented by: Methylergonovine Maleate (Methergine) 0.2 mg IM X1 PRN PRN Reason: Uterine Atony Naloxone HCl (Narcan) 0.02 mg IV Q1M PRN PRN Reason: RR <10 and pt unresponsive Ondansetron HCl (Zofran) 4 mg IV Q4H PRN PRN PRN Reason: Nausea Oxycodone HCl (Oxyir) 5 - 10 mg PO Q4H PRN PRN PRN Reason: Pain Score 4-10/10 Prochlorperazine Edisylate (Compazine Iv) 10 mg IV Q6H PRN PRN PRN Reason: NAUSEA Senna/Docusate Sodium (Senokot-S, Lisa-Colace) 0 tablet PO DAILY [facility]ESS[facility] Last Admin: 12/29/19 10:06 Dose: 1 tablet Documented by: Simethicone (Mylicon) 80 mg PO PCHS PRN PRN Reason: Indigestion/stomach pain Sodium Chloride () 5 - 15 ml IV UD PRN PRN Reason: SALINE FLUSH Last Admin: 12/29/19 05:46 Dose: 10 ml Documented by: Discharge Diet: No Restrictions Discharge Activity: May Drive - 2 weeks May resume sexual activity in: 6-8 weeks Weight Bearing Status: Weight bearing as tolerated Suture Line Care: Avoid Pulling/Pushing Home Medications: Medications to take at Discharge Ferrous Gluconate 324 mg PO DAILY 12/27/19 Pnv No.95/Ferrous Fum/Folic AC [ Formula Tablet] 1 ea PO DAILY 12/27/19 Primary Care Physician: Care Physician,No Primary [Primary Care Provider] - Medical Necessity - Tobacco Use Smoking Status: Never smoker Meaningful Use Info Meaningful Use Diagnoses (Choose all that apply): None applicable
[2019-12-30] MEDS: Senna/Docusate Sodium 1 Tablet PO (10:36)
[2019-12-30 12:33] VITALS: BP 135/84; PULSE 85; RESP 18; TEMP 36.9
== END 2019-12-30 12:00 | disposition home or self-care (01) | DRG 788 ==
LOC: WPOUT 20:05 → WP 20:07
PROVIDERS: Obstetrics & Gynecology; Admitting Provider Obstetrics & Gynecology; Referring Provider Obstetrics & Gynecology; Visit Provider Obstetrics & Gynecology
DX: O62.2 Other uterine inertia (principal); O32.4XX0 Maternal care for high head at term, not applicable or unspecified; O99.824 Streptococcus B carrier state complicating childbirth; Z3A.40 40 weeks gestation of pregnancy; Z37.0 Single live birth
CPT/HCPCS: 59025; 59050; 85025; 85027; 86850; 86900; 86901; 99218; J7120; A4216; G0378; J2405

== ENCOUNTER 2022-09-28 16:24 | Emergency (ER) | payer OTHER, SELFPAY ==
[2022-09-28 16:24] VITALS: BP 133/90; PULSE 111; RESP 20; TEMP 36.6; O2SAT 99; BMI 32.3
[2022-09-28 16:36] VITALS: BP 144/85; PULSE 102; RESP 24; O2SAT 99
--- NOTE | 2022-09-28 16:37 | EKG12_ITS ---
Test Reason : CP Blood Pressure : / mmHG Vent. Rate : 101 BPM Atrial Rate : 101 BPM P-R Int : 138 ms QRS Dur : 088 ms QT Int : 340 ms P-R-T Axes : 051 045 033 degrees QTc Int : 440 ms Sinus tachycardia Otherwise normal ECG Confirmed by SHANTA IRVIN, RM ([id number]), book editor DANIELA MAHAN ([id number]) on 10/02/2022 11:43:21 AM Referred By: JANETH Confirmed By:RM WOMACK MD
--- NOTE | 2022-09-28 17:05 | ED.VIS.CHEST ---
HPI <TYLOR Negron - Last Filed: 09/28/22 20:38> History of Present Illness Chief Complaint: Chest Pain Narrative Narrative: Patient presenting today due to chest pain. She states that on Sunday she developed dull left sided arm pain but did not have any pain in her chest. She states that this morning, she developed sharp and constant pain in her left chest, left lateral rib cage, and left shoulder that worsens when she takes a deep breath. She denies any history of blood clots. She is currently 29 weeks . She is G3, P2. She denies any complications to date, shortness of breath, vaginal bleeding, pelvic pain, abdominal pain, nausea, and vomiting. She denies a history of any cardiac conditions. PFSH <TYLOR Negron - Last Filed: 09/28/22 20:38> PFSH Medical History Anemia delivery delivered Home Medications ferrous gluconate 324 mg (37.5 mg iron) tablet 324 mg PO DAILY anemia 12/27/19 [History Last Taken 12/27/19 12:00 1] vit no.95-ferrous fumarate 28 mg-folic acid 800 mcg tablet 1 ea PO DAILY 12/27/19 [History Last Taken 12/27/19 12:00] Allergy/AdvReac Type Severity Reaction Status Date / Time No Known Allergies Allergy Verified 09/28/22 16:28 Family History Other Heart disease Surgical History H/O dilation and curettage History of wisdom tooth extraction Social History Smoking Status: Never smoker alcohol intake: never ROS <TYLOR Negron - Last Filed: 09/28/22 20:38> ROS ED Constitutional Constitutional ED: Denies chills or fever(s) Cardiovascular Cardiovascular: Reports chest pain; Denies palpitations Respiratory/Chest Respiratory/Chest: Denies cough, dyspnea or tachypnea Gastrointestinal Gastrointestinal: Denies abdominal pain, nausea or vomiting Musculoskeletal Musculoskeletal: Denies arthralgias, back pain, myalgias or neck pain Integumentary Denies abscess, Abrasions or rash Neurologic Neurologic: Denies weakness Psychiatric Psychiatric: Denies anxiety, depression, suicidal ideation or suicidal thoughts EXAM <TYLOR Negron - Last Filed: 09/28/22 20:38> Physical Exam Const Vital Signs: 09/28/22 16:24 09/28/22 16:36 09/28/22 17:36 Temperature 98 F Temperature Source Temporal Pulse Rate 111 H 102 H 96 Respiratory Rate 20 H 24 H 18 Blood Pressure 133/90 H 144/85 H 134/76 H Blood Pressure Mean 104 104 95 Pulse Ox 99 99 100 Oxygen Delivery Method Room Air Room Air Room Air 09/28/22 19:28 Temperature Temperature Source Pulse Rate 105 H Respiratory Rate 16 Blood Pressure 129/78 H Blood Pressure Mean 95 Pulse Ox Oxygen Delivery Method Positive well nourished, well developed and no apparent distress General Appearance ED: well developed HEENT Reports normocephalic and head/scalp atraumatic Mouth ED: Yes moist mucous membranes normal Eyes PERRL and EOMs intact bilaterally Neck full ROM and supple Chest Wall inspection of chest normal Resp normal respiratory effort and clear to auscultation bilaterally Cardio regular rate and regular rhythm GI soft to palpation, non-tender, non-distended and no masses Back/Spine normal ROM and normal to inspection Extremity normal to inspection and full ROM Neuro oriented x3, CN's II-XII intact bilaterally, moves all extremities, no focal motor deficits and no sensory deficits noted Sensorium / Orientation: awake and alert Psych mental status grossly normal and thought process normal Skin no rashes or lesions noted and no wounds <Dr. Ulises Hanks DO - Last Filed: 09/28/22 23:38> Physical Exam Const Vital Signs: 09/28/22 16:24 09/28/22 16:36 09/28/22 17:36 Temperature 98 F Temperature Source Temporal Pulse Rate 111 H 102 H 96 Respiratory Rate 20 H 24 H 18 Blood Pressure 133/90 H 144/85 H 134/76 H Blood Pressure Mean 104 104 95 Pulse Ox 99 99 100 Oxygen Delivery Method Room Air Room Air Room Air 09/28/22 19:28 Temperature Temperature Source Pulse Rate 105 H Respiratory Rate 16 Blood Pressure 129/78 H Blood Pressure Mean 95 Pulse Ox Oxygen Delivery Method MDM <TYLOR Negron - Last Filed: 09/28/22 20:38> MDM MDM Narrative Medical decision making narrative: Patient presenting today due to left-sided chest pain that started this morning. She has had left sided arm pain since Sunday. The pain is worse when she takes a deep breath. She has no history of blood clots but she is , labs to be obtained to rule out ACS, leukocytosis, anemia, electrolyte abnormality, and a D-dimer will be obtained. She is well-appearing and in no distress. She is mildly tachycardic. She does have leukocytosis but she states she is just getting over a sinus infection. She does have a mild anemia and states that this is normal for her. D-dimer is elevated, because of this and her symptoms CTA of the chest will be obtained to rule out PE. Troponin is WNL. CTA does not show any obvious PE. heart tones were obtained and are WNL. Encouraged her to follow-up with her CUSTOMIZER and PCP. She will be discharged home in stable condition and has been given strict return instructions. She is comfortable with plan. Lab Data Attestation: I reviewed the patient's lab results. Lab results narrative: Leukocytosis, H&H 10.5 and 32.5, D-dimer 0.67, BMP unremarkable, troponin WNL Labs: Laboratory Results - last 24 hr 09/28/22 09/28/22 09/28/22 17:00 17:00 17:00 WBC 14.5 H RBC 3.55 L Hgb 10.5 L Hct 32.5 L MCV 91.5 MCH 29.6 MCHC 32.3 RDW Std Deviation 47.5 H RDW Coeff of Iván 14.3 Plt Count 208 MPV 11.1 Immature Gran % (Auto) 1.200 H Neut % (Auto) 77.5 H Lymph % (Auto) 14.7 L Donley % (Auto) 5.4 Eos % (Auto) 0.9 Baso % (Auto) 0.3 Absolute Neuts (auto) 11.3 H Absolute Lymphs (auto) 2.13 Nucleated RBC % 0 D-Dimer Quant (PE/DVT) 0.67 H* Sodium 138 Potassium 4.0 Chloride 106 Carbon Dioxide 25.0 Anion Gap 7 BUN 9 Creatinine 0.72 Estim Creat Clear Calc 106.96 Est GFR (MDRD) Af Amer 121 Est GFR (MDRD) Non-Af 100 BUN/Creatinine Ratio 12.4 Glucose 88 Calcium 9.1 Troponin I High Sens 40 Radiography Diagnostic Testing: Clinical Impression(s) from Imaging Studies Chest CTA 09/28/22 18:10 IMPRESSION: Limited examination for the evaluation of acute pulmonary emboli due to excessive streak artifact. Despite limitations: No obvious acute pulmonary emboli to the segmental level. If high clinical concern, consider nuclear medicine V/Q scan. Electronically Signed: Joseph Abdul MD at 19:41 EDT , EKG Initial EKG: Comments: 101 bpm, sinus tachycardia, no ST elevation, reviewed and interpreted by attending ED physician <Dr. Ulises Hanks, DO - Last Filed: 09/28/22 23:38> [facility] MDM Narrative Medical decision making narrative: Patient presenting today due to left-sided chest pain that started this morning. She has had left sided arm pain since Sunday. The pain is worse when she takes a deep breath. She has no history of blood clots but she is , labs to be obtained to rule out ACS, leukocytosis, anemia, electrolyte abnormality, and a D-dimer will be obtained. She is well-appearing and in no distress. She is mildly tachycardic. She does have leukocytosis but she states she is just getting over a sinus infection. She does have a mild anemia and states that this is normal for her. D-dimer is elevated, because of this and her symptoms CTA of the chest will be obtained to rule out PE. Troponin is WNL. CTA does not show any obvious PE. heart tones were obtained and are WNL. Encouraged her to follow-up with her CUSTOMIZER and PCP. She will be discharged home in stable condition and has been given strict return instructions. She is comfortable with plan. This patient was seen with a PA/SEASONAL PACKAGE HANDLER Individually assessed they patient including history and physical. I have reviewed everything on the chart that is available and agree with the documentation provided by the PA/SEASONAL PACKAGE HANDLER including discussion about the assessment, treatment plan, discussion, and return precautions. Patient presenting with left shoulder pain which is eventually evolved into the left rib and upper chest pain. Patient 29 weeks noting concern for PE. She is tachycardic and saying hurts when she take a deep breath. EKG shows sinus tach without signs of ischemia. Lab work otherwise unremarkable with exception of a leukocytosis. D-dimer was elevated 0.67. Risk benefits of CTA were discussed with the patient. She agrees to go through with CTA. This was eventually normal shows no sign of PE or dissection. There is no infiltrate. I suspect at this point this is likely musculoskeletal. Patient is counseled signs. Recommended Tylenol, ice, stretching. heart tones 145 the patient does not have any issues. At this point she will be discharged home to follow-up with her CUSTOMIZER. Lab Data Labs: Laboratory Results - last 24 hr 09/28/22 09/28/22 09/28/22 17:00 17:00 17:00 WBC 14.5 H RBC 3.55 L Hgb 10.5 L Hct 32.5 L MCV 91.5 MCH 29.6 MCHC 32.3 RDW Std Deviation 47.5 H RDW Coeff of Iván 14.3 Plt Count 208 MPV 11.1 Immature Gran % (Auto) 1.200 H Neut % (Auto) 77.5 H Lymph % (Auto) 14.7 L Donley % (Auto) 5.4 Eos % (Auto) 0.9 Baso % (Auto) 0.3 Absolute Neuts (auto) 11.3 H Absolute Lymphs (auto) 2.13 Nucleated RBC % 0 D-Dimer Quant (PE/DVT) 0.67 H* Sodium 138 Potassium 4.0 Chloride 106 Carbon Dioxide 25.0 Anion Gap 7 BUN 9 Creatinine 0.72 Estim Creat Clear Calc 106.96 Est GFR (MDRD) Af Amer 121 Est GFR (MDRD) Non-Af 100 BUN/Creatinine Ratio 12.4 Glucose 88 Calcium 9.1 Troponin I High Sens 40 Radiography Diagnostic Testing: Clinical Impression(s) from Imaging Studies Chest CTA 09/28/22 18:10 IMPRESSION: Limited examination for the evaluation of acute pulmonary emboli due to excessive streak artifact. Despite limitations: No obvious acute pulmonary emboli to the segmental level. If high clinical concern, consider nuclear medicine V/Q scan. Electronically Signed: Joseph Abdul MD at 19:41 EDT , Discharge Plan Triage Chief Complaint: Chest Pain ED Midlevel Provider: Tamiko Dominguez ED Provider: Ulises Hanks Dx/Rx/DC Orders Clinical Impression: , Chest pain Instructions: ED Chest Pain, Noncardiac Prescriptions: No Action PNV cmb#95-ferrous fumarate-FA 1 EACH tablet 1 ea PO DAILY ferrous gluconate 324 MG tablet 324 mg PO DAILY Primary Care Provider: Woo Mata NP Referrals: oWo Mata SEASONAL PACKAGE HANDLER, SEASONAL PACKAGE HANDLER-C [Primary Care Provider] - Activity Restrictions/Additional Instructions: Please follow-up with your CUSTOMIZER and return for any worsening of symptoms. Disposition Disposition: Home, Self Care Discharge Date/Time: 09/28/22 20:44
[2022-09-28 17:24] LABS: Absolute Lymphocyte Count 2.13 X10^3/uL (0.83-4.51); Absolute Neutrophil Count 11.3 X10^3/uL (2.0-7.7); Basophil# 0.04 X10^3/uL; Basophil% 0.3 % (0-1); Eosinophil# 0.13 X10^3/uL; Eosinophils% 0.9 % (0-5); Hematocrit 32.5 % (37-47); Hemoglobin 10.5 g/dL (12.0-15.0); Lymphocyte # 2.13 X10^3/ul (0.83-4.51); Lymphocyte % 14.7 % (19-41); Mean Corp Hgb Conc 32.3 g/dL (32-36); Mean Corpuscular Hgb 29.6 pg (27.0-32.0); Mean Corpuscular Volume 91.5 fL (81-99); Mean Platelet Vol. 11.1 fl (6.2-12.0); Monocyte# 0.79 X10^3/uL; Monocyte% 5.4 % (0-10); NRBC Flagged by Analyzer 0 % (0-5); Neutrophil # 11.26 X10^3/uL (2.7-7.7); Neutrophil % 77.5 % (47-70); Platelet Count 208 K/mm3 (150-450); RBC Distribution Width CV 14.3 % (11.6-14.6); RBC Distribution Width SD 47.5 fl (35.1-43.9); Red Blood Count 3.55 M/mm3 (4.2-5.4); White Blood Count 14.5 K/mm3 (4.4-11.0)
[2022-09-28 17:27] LABS: POSITIVE COUNT NO; POSITIVE DIFFERENTIAL NO; POSITIVE MORPHOLOGY NO
[2022-09-28] MEDS: 0.9% Normal Saline 1,000 ML 999 ML IV (17:27)
[2022-09-28 17:36] VITALS: BP 134/76; PULSE 96; RESP 18; O2SAT 100
[2022-09-28 17:48] LABS: D-Dimer Quantitative (DVT/PE) 0.67 FEU/ug/m (0.27-0.49)
[2022-09-28 17:54] LABS: Anion Gap 7 (5-15); BUN 9 mg/dL (7-18); BUN/Creat Ratio 12.4 RATIO (10-20); Calcium,Total 9.1 mg/dL (8.5-10.1); Chloride 106 mmol/L (98-107); Creatinine, Serum 0.72 mg/dL (0.55-1.02); EST Glomerular Filtration Rate 100 mL/min (>60); Est Glom Filt Rate - Afr Amer 121 mL/min (>60); Estimated Creatinine Clearance 106.96 ml/min; Glucose 88 mg/dL (74-106); Sodium Level 138 mmol/L (136-145); Troponin-I HS 40 pg/mL (3.0-54.0)
--- NOTE | 2022-09-28 18:10 | CT_ITS ---
INDICATION: chest pain EXAMINATION: CTA Chest WO/W Contrast Injection TECHNIQUE: Helically acquired images were obtained of the chest following administration of IV contrast. A radiation dose optimization technique was used for this scan. 3D postprocessing images including MIPS were reviewed. IV Contrast dosage and agent: IV 100mL Isovue-370 COMPARISON: None. FINDINGS: Lungs: Unremarkable Mediastinum: The cardiomediastinal silhouette is not enlarged. No mediastinal, hilar or axillary adenopathy. The thoracic aorta is unremarkable. No obvious filling defect seen within the visualized pulmonary arteries. Pleura: Unremarkable Bones/Soft tissues: No suspicious osseous or soft tissue lesions Upper abdomen: No visualized abnormalities in the upper abdomen. CT/CTA Chest W/WO Contrast IMPRESSION: Limited examination for the evaluation of acute pulmonary emboli due to excessive streak artifact. Despite limitations: No obvious acute pulmonary emboli to the segmental level. If high clinical concern, consider nuclear medicine V/Q scan. Electronically Signed: Joseph Abdul MD at 19:41 EDT ,
[2022-09-28 19:28] VITALS: BP 129/78; PULSE 105; RESP 16
== END 2022-09-28 20:44 | disposition home or self-care (01) ==
PROVIDERS: Physician Assistant; Emergency Provider Student in an Organized Health Care Education/Training Program; PCP Nurse Practitioner Primary Care; Visit Provider Student in an Organized Health Care Education/Training Program
DX: O99.891 Other specified diseases and conditions complicating pregnancy (principal); R07.89 Other chest pain; O99.013 Anemia complicating pregnancy, third trimester; Z3A.29 29 weeks gestation of pregnancy
CPT/HCPCS: 71275; 80048; 84484; 85025; 85379; 93005; 96360; 96361; 99283; J7030; Q9967; A4216

== ENCOUNTER 2022-12-05 09:25 | Inpatient (IN) | payer OTHER, SELFPAY ==
[2022-12-05] VITALS (15 sets, daily range): BP systolic 100–131; BP diastolic 51–76; PULSE 60–99; RESP 16–18; TEMP 35.6–36.6; O2SAT 95–100; BMI 34.9
[2022-12-05] MEDS: Lactated Ringers 1,000 ML 999 ML IV (10:00)
[2022-12-05 10:25] LABS: Absolute Lymphocyte Count 1.81 X10^3/uL (0.83-4.51); Absolute Neutrophil Count 11.2 X10^3/uL (2.0-7.7); Basophil# 0.04 X10^3/uL; Basophil% 0.3 % (0-1); Eosinophil# 0.08 X10^3/uL; Eosinophils% 0.6 % (0-5); Hematocrit 35.4 % (37-47); Hemoglobin 11.2 g/dL (12.0-15.0); Lymphocyte # 1.81 X10^3/ul (0.83-4.51); Lymphocyte % 12.9 % (19-41); Mean Corp Hgb Conc 31.6 g/dL (32-36); Mean Corpuscular Hgb 30.1 pg (27.0-32.0); Mean Corpuscular Volume 95.2 fL (81-99); Mean Platelet Vol. 11.9 fl (6.2-12.0); Monocyte# 0.71 X10^3/uL; Monocyte% 5.1 % (0-10); NRBC Flagged by Analyzer 0 % (0-5); Neutrophil # 11.15 X10^3/uL (2.7-7.7); Neutrophil % 79.7 % (47-70); Platelet Count 142 K/mm3 (150-450); RBC Distribution Width CV 14.8 % (11.6-14.6); RBC Distribution Width SD 51.6 fl (35.1-43.9); Red Blood Count 3.72 M/mm3 (4.2-5.4)
--- NOTE | 2022-12-05 10:32 | HP.PCM.OB_ITS ---
HPI - General General Date of Admission: 12/05/22 Date of Service: 12/05/22 HPI Narrative KARY JOINER, is a 32 F who presents for . Maternal Data Information Final EDITH: 12/05/22 Gestational age: 39&3 PFSH [facility] Medical History Anemia delivery delivered Home Medications ferrous gluconate 324 mg (37.5 mg iron) tablet 324 mg PO DAILY anemia 12/27/19 [History Last Taken 12/04/22] vit no.95-ferrous fumarate 28 mg-folic acid 800 mcg tablet 1 ea PO DAILY 12/27/19 [History Last Taken 12/04/22] Allergy/AdvReac Type Severity Reaction Status Date / Time No Known Allergies Allergy Verified 12/05/22 10:10 Family History Other Heart disease Surgical History H/O dilation and curettage History of delivery History of wisdom tooth extraction Social History Smoking Status: Never smoker alcohol intake: never History Elective abortions Hx Para 0 Spontaneous abortions Hx # Term Pregnancies Ectopic pregnancies Hx # Pregnancies Multiple births # of living children Physical Exam Const alert, oriented x3 and no apparent distress Chest inspection of chest normal GI soft to palpation, non-tender and non-distended Inspection: gravid Extremity normal to inspection Labs Labs Labs: Blood Type B POSITIVE Antibody Screen NEGATIVE Hct 35.4 % (37-47) L Hgb 11.2 g/dL (12.0-15.0) L Syphilis Total Ab Pending Rhogam given: No See [facility] H&P Assessment & Plan (1) History of delivery: (2) Anemia: QUALIFIERS: Anemia type: iron deficiency Iron deficiency anemia type: unspecified iron deficiency Qualified Code(s): D50.9 - Iron deficiency anemia, unspecified PLAN: Plan Admit to L&D MOD - proceed with repeat . Informed consent signed. Routine care
[2022-12-05] MEDS: Lactated Ringers 1,000 ML 150 ML IV (11:08)
[2022-12-05 11:14] LABS: Syphilis Antibodies Non-reactive
[2022-12-05] MEDS: Acetaminophen 500 MG Tablet 1000 MG PO ×3 (12:04→23:54)
[2022-12-05] MEDS: Sodium Citrate/Citric Acid 30 ML UDC PO (12:05)
[2022-12-05] MEDS: Cefazolin 2 GM in 0.9% Normal Saline 100 ML IV (12:11)
--- NOTE | 2022-12-05 13:14 | OP.PCM_ITS ---
Maternal Data Information Final EDITH: 12/09/22 Gestational age: 39&3 Details Operative Information Date of Procedure: 12/05/22 Pre-Operative Diagnosis: (1) Prior section Post-Operative Diagnosis: Same Indications for : Repeat Elective Indications Narrative: The patient was taken to the operating room where spinal anesthesia was placed & found to be adequate. She was prepped and draped in the dorsal supine position with a leftward tilt. A Pfannenstiel skin incision was made approximately 2 cm above the symphysis pubis and carried through to the underlying fascia with the scalpel. The fascia was incised incised in the midline and extended laterally with the Sandoval scissors. The rectus muscles were in the midline and the peritoneum was entered carefully and bluntly. The peritoneal incision was stretched and the bladder blade was inserted. Vesicouterine peritoneum was tented up, incised & then bladder flap created gently. The uterine incision was made in a low transverse fashion with the scalpel and extended superiorly and inferiorly with blunt dissection. Bandage scissors were used to extend the uterine incision on the right side. The left rectus muscles were using the bovie. The 's head was brought to the incision in the flexed position and did not deliver. The vacuum was applied to the head but immediately popped off. With good fundal pressure the head then delivered without difficulty. The head was gently guided to allow delivery of the anterior and posterior shoulders. The body then delivered with fundal pressure in the standard fashion. The 3VC cord was clamped and cut in delayed fashion. The infant was handed off to the waiting contact center rep. The placenta was delivered with fundal massage and gentle traction in the standard fashion. The uterus was exteriorized and cleared of clots and debris. The uterine incision was closed with #1 Vicryl suture in a running locked fashion. The incision was examined and was found to be hemostatic. The uterus was returned to the abdominal cavity. After irrigating, bovie cautery was used to obtain further hemostasis of the uterine incision. Zack was placed over the uterine incision as some areas were denuded (but hemostatic). The rectus muscle was examined and any bleeding was Bovie cauterized. The fascia was closed with PDS suture in a running standard fashion. The subcutaneous tissue was examining and any bleeding was Bovie cauterized. The subcutaneous tissue was reapproximated with interrupted sutures. The skin was closed in a subcuticular fashion by the LANDSCAPE ARCHITECT while I was present in the labor & delivery unit. The remainder of the procedure was performed by me with assistance. All sponge, lap, and needle counts were correct. The patient was taken to her room for recovery in a stable condition. 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 #1: Vani Mueller Type of Anesthesia: Spinal Antibiotic Given: Ancef 2 grams IV x1 Drain: Rodriguez to straight drain Estimated Blood Loss: 800ml Fluids Replaced: 850ml Procedure Start Time: 12:33 Procedure Stop Time: 13:16 Findings Description of Procedure: Normal maternal uterus and adnexa Presentation: Positive for Vertex Amniotic Membrane Rupture Type: Artificial Amniotic Fluid Description: Clear Placental Delivery Description: Expressed Placenta Disposition: [facility] Cord Vessel Description: 3 Vessels Cord Entanglement: None A Gender: Male (weight = 8-15) (1 minute): 8 (5 minute): 9 Delayed Cord Clamping: Yes Complications Complications: None
[2022-12-05] MEDS: Oxytocin 15 Units/NS 250ml 15 UNITS/250 ML IV.SOLN 83 UNITS IV (13:35)
[2022-12-05] MEDS: Ketorolac 30 MG/ML Syringe IV ×2 (14:06→19:45)
[2022-12-05] MEDS: Lactated Ringers 1,000 ML 100 ML IV (16:39)
[2022-12-06] MEDS: Enoxaparin 40 MG/0.4 ML Syringe SC (01:26)
[2022-12-06] MEDS: 0.9% Saline Lock 10 ML Syringe IV ×2 (01:30→08:03)
[2022-12-06] MEDS: Ketorolac 30 MG/ML Syringe IV ×2 (01:33→08:03)
--- NOTE | 2022-12-06 03:04 | NURSING ---
this RN assessing if pt is able to urinate. pt states she has tried multiple times to sit and use to bathroom but has not been able to go just blood is noted in the hat in the toilet. this rn used warm water in the cande bottle and running water from the sink to assist the pt with urinating. pt still unable to urinate, this RN suggested getting into the shower. pt IV site was covered, pt nursing the baby then got into the shower, will continue to assess
--- NOTE | 2022-12-06 03:25 | NURSING ---
Pt reported that she was up to the shower and voided in there. Pt stated she felt like she emptied her bladder and felt relieved. Will continue to measure an additional two voids.
[2022-12-06 03:40] VITALS: BP 111/48; PULSE 87; RESP 16; TEMP 36.3; O2SAT 97
[2022-12-06 04:30] LABS: Hematocrit 27.7 % (37-47); Hemoglobin 9.1 g/dL (12.0-15.0); Mean Corp Hgb Conc 32.9 g/dL (32-36); Mean Corpuscular Volume 91.4 fL (81-99); Mean Platelet Vol. 11.5 fl (6.2-12.0); Platelet Count 124 K/mm3 (150-450); RBC Distribution Width CV 14.6 % (11.6-14.6); RBC Distribution Width SD 48.7 fl (35.1-43.9); Red Blood Count 3.03 M/mm3 (4.2-5.4); White Blood Count 14.4 K/mm3 (4.4-11.0)
[2022-12-06] MEDS: Acetaminophen 500 MG Tablet 1000 MG PO ×2 (06:26→12:20)
--- NOTE | 2022-12-06 08:25 | PCM.PROGNOTE ---
Subjective Subjective patient seen at bedside, doing well. Patient reports good pain control. lochia mild. breast feeding w/o concerns. Objective Data Objective Data Vital Signs: Vital Signs Temp Pulse Resp BP Pulse Ox O2 Del Method 97.4 F L 87 16 111/48 L 97 Room Air 12/06/22 03:40 12/06/22 03:40 12/06/22 03:40 12/06/22 03:40 12/06/22 03:40 12/06/22 03:40 Oxygen Delivery Method Room Air Weight: 98.157 kg Body Mass Index (BMI) 34.9 Intake & Output: Intake and Output for Last 24 Hours 12/04/22 12/05/22 12/06/22 23:59 23:59 23:59 Intake Total 2375 / 2375 Output Total 1150 / 1150 900 / 900 Balance 1225 / 1225 -900 / -900 Lab / Micro Data 12/06/22 04:25 Labs: Laboratory Results - last 24 hr 12/05/22 10:00: WBC 14.0 H, RBC 3.72 L, Hgb 11.2 L, Hct 35.4 L, MCV 95.2, MCH 30.1, MCHC 31.6 L, RDW Std Deviation 51.6 H, RDW Coeff of Iván 14.8 H, Plt Count 142 L, MPV 11.9, Immature Gran % (Auto) 1.400 H, Neut % (Auto) 79.7 H, Lymph % (Auto) 12.9 L, [place] % (Auto) 5.1, Eos % (Auto) 0.6, Baso % (Auto) 0.3, Absolute Neuts (auto) 11.2 H, Absolute Lymphs (auto) 1.81, Nucleated RBC % 0, Syphilis Total Ab Non-reactive, Blood Type B POSITIVE, Antibody Screen NEGATIVE 12/06/22 04:25: WBC 14.4 H, RBC 3.03 L, Hgb 9.1 L, Hct 27.7 L, MCV 91.4, MCH 30.0, MCHC 32.9, RDW Std Deviation 48.7 H, RDW Coeff of Iván 14.6, Plt Count 124 L, MPV 11.5 Physical Exam Narrative abd dressing: dry and intact Const alert and oriented x3 General Appearance: cooperative HEENT normocephalic Neck General: normal visual inspection GI soft to palpation and non-distended GI Narrative: Fundus firm Extremity normal to inspection and no calf tenderness Skin no rashes or lesions noted Neuro oriented x3 and CN's II-XII intact bilaterally Psych mental status grossly normal Assessment & Plan Assessment/Plan (1) Delivery by section: (2) Acute on chronic blood loss anemia: PLAN: Plan POD# 1 , Doing well Routine care pain mgmt monitor VS ambulation anemia - acute on chronic blood loss anemia - iron PO
[2022-12-06 09:14] VITALS: BP 115/57; PULSE 88; RESP 16; TEMP 36.8; O2SAT 99
[2022-12-06] MEDS: Senna/Docusate Sodium 1 Tablet PO (12:19)
[2022-12-06] MEDS: Ferrous Sulfate 325 MG Tablet PO (12:56)
[2022-12-06 13:00] VITALS: BP 119/65; PULSE 104; RESP 16; TEMP 36; O2SAT 96
--- NOTE | 2022-12-06 15:04 | PCM.DC ---
Discharge Instructions Diet Discharge Diet: No restrictions Activity May resume sexual activity in: 6-8 weeks Lifting Restrictions: 25 Dressing / Incision Call your doctor if your incision/area has: Continuous Slow Oozing, Sudden Increased Bleeding, Increased Pain/ Swelling, Increased Redness, Foul Smelling Discharge and Swelling at the incision site Call your doctor if you observe: Fever of 101 or Higher, Inability to urinate, Using more than 1 pad per hour and Uncontrolled pain Additional Dressing/Incision Instructions:: remove dressing at 7 days post op- if it becomes saturated prior to that time you may remove it. Let soap and water run over incision sites and dab dry. keep incision clean and dry. Follow Up Care Please Follow Up With: Taty Norris MD When: 1-2 weeks post of incision check and again at 6 weeks post . [phone] Test Results: Test results from this visit will be discussed in further detail at your follow-up appointment, if applicable. Discharge Plan Admission Admit Date/Time: 12/05/22 09:25 Attending Provider: Magan Sanchez Primary Care Provider: Woo Mata NP Discharge Orders/Prescriptions Prescriptions: No Action PNV cmb#95-ferrous fumarate-FA 1 EACH tablet 1 ea PO DAILY ferrous gluconate 324 MG tablet 324 mg PO DAILY Referrals / Follow Up: Woo Mata NP, [employer] [Primary Care Provider] - Disposition Disposition (needs filled in before D/C Order can be placed): Home, Self Care
--- NOTE | 2022-12-06 15:06 | DS.PCM_ITS ---
Discharge Summary Date of Admission: 12/05/22 Date of Discharge: 12/06/22 Summary: pt admitted for scheduled repeat LTCS performed by Dr. Magan Sanchez- Had uncomplicated Post op stay. Pt requested dc home on Post op day 1. Discharged on 12/06/22 in stable condition. Meaningful Use Info Meaningful Use Diagnoses (Choose all that apply): None applicable Discharge Plan Admission Admit Date/Time: 12/05/22 09:25 Attending Provider: Magan Sanchez Primary Care Provider: Woo Mata NP Discharge Orders/Prescriptions Prescriptions: No Action PNV cmb#95-ferrous fumarate-FA 1 EACH tablet 1 ea PO DAILY ferrous gluconate 324 MG tablet 324 mg PO DAILY Referrals / Follow Up: Woo Mata NP, [employer] [Primary Care Provider] - Disposition Disposition (needs filled in before D/C Order can be placed): Home, Self Care
[2022-12-06] MEDS: Ibuprofen 600 MG Tablet PO (15:11)
--- NOTE | 2022-12-06 15:14 | CASEMGMT ---
Social Work Assessment Labor and Delivery Unit Patient Address:[address] [place] [id number] Phone number: [phone] Date of Referral: 12/05/22 Time of Referral:? 829 Referred By: Need for social work consult identified by nursing staff. Date of Intervention: ??12/06/22 Time of Intervention:? 1430 Reason for Referral:? Maternal anxiety Sw completed chart review. Presented to bedside, introduced self to mother of baby (MOB- Britany) and maternal grandma. Sw explained reason for sw involvement and when appropriate asked maternal grandma to step out to discuss maternal mental health history. History obtained from: medical records and MOB Household composition: Currently residing in the home is MOB, father of baby (SAHRA Currie), older daughter, Brennen (2.5 years old) and baby boy, Ismael. Patient's parent/guardian status:?MOB states that parents have been together for 16 years. When meeting with MOB privately, MOB denied domestic violence and intimate partner violence. Medical History: This is third and second delivery for MOB. MOB received routine [facility] with [facility] during . MOB delivered baby via . Baby boy, Ismael Wilkinson was born weighing 8lb 9oz, his apgars were 8 and 9. MOB states that she is , and has a pump for home. ? Educational Status:?MOB states that she ahs obtained her Bachelors degree in accounting. GUZMAN has his GED. Financial Status: Both parents are gainfully employed outside of the home. GUIDO works as an reconciliation accountant and GUZMAN works for [employer]. Infant Supplies:??MOB states that she has obtained everything that they need for baby including safe sleep space, car seat, clothes, diapers and wipes. Childcare/Caregiver(s):? MOB states that when both parents are at work they have an in home babystiter they will use. Transportation:?? Both parents have reliable transportation. No barriers at this time. Programs/Agencies Involved: ???No linkage to community agencies/ resources at this time. MOB states that parents do have connection to counseling. MOB disclosed that there were some issues with their marriage including pornography. MOB states that they have worked through these issues and are in a good place. Children Services/Legal Issues:??? MOB denies Children Services history. No issues or concerns that warrant a referral at this time. Behavioral Health Issues: ??Mental Health History:?MBO states that FOJez does not have any mental health diagnoses. MOB states that she has anxiety, but unofficially. MOB states that her anxiety was related to some breathing issues that she was having. MOB reports that following the of her daughter she did experience some baby blues. MOB states at that time she was mostly crying a lot. Sw educated MOB on signs and symptoms of baby blues and post depression. MOB completed [place] Depression Screen, her score was a 1. Sw provided support and encouraged MOB to get connected to a mental health support person should her symptoms get worse over time instead of better. MOB expressed understanding. ?? Substance Use History:?MOB denies, ? Family History:??MOB denies mental health and substance use history for her family and FOB family. ??? Drug Screens: No urine screens observed in chart review. ?? Family/Social Stressors: MOB does not identify any stressors at this time. MOB states that she is ready for discharge and to be home with baby. ? Support Systems: MOB states that both sets of parents are supportive. MOB states that FOB sisters are also really supportive. MOB encouraged to reach out to these natural supports should she start to notice her mental health symptoms getting worse. MOB expressed understanding. Depression/Shaken Baby/Safe Sleeping:?Sw provided education and literature on signs and symptoms of baby blues and post depression. Sw educated MOB on shaken baby prevention and ABCs of safe sleep. MOB expessed understanding. ASSESSMENT:? MOB talkative during sw assessment. MOB opened up about marital counseling when her mom was asked to leave the room. MOB receptive to sw involvement and support. MOB also receptive to getting connected to natural supports or mental health supports if she starts to notice that she is experiencing baby blues again. PLAN:? MOB and baby to be discharged today when medically ready. ?No other services requested or indicated. Jhoana Perkins, CONTRACT ANALYST, EVENT COORDINATOR
[2022-12-06 16:00] VITALS: BP 122/79; PULSE 77; RESP 16; TEMP 36.3; O2SAT 98
== END 2022-12-06 17:50 | disposition home or self-care (01) | DRG 787 ==
PROVIDERS: Admitting Provider Obstetrics & Gynecology; PCP Nurse Practitioner Primary Care; Visit Provider Obstetrics & Gynecology
PROC: 10D00Z1 Extraction of Products of Conception, Low, Open Approach (ICD-10-PCS; CPT 59514; principal; 2022-12-05 11:45)
DX: O34.211 Maternal care for low transverse scar from previous cesarean delivery (principal); D62 Acute posthemorrhagic anemia; O99.02 Anemia complicating childbirth; Z37.0 Single live birth; Z3A.39 39 weeks gestation of pregnancy; Z79.899 Other long term (current) drug therapy
CPT/HCPCS: 59025; 85025; 85027; 86780; 86850; 86900; 86901; 99221; J7120; A4216; G0378